=== PATIENT | female | born 1960 | race Caucasian/White ===

== ENCOUNTER 2017-04-12 19:28 | Emergency (ER) | payer OTHER ==
[2017-04-12 19:38] VITALS: RESP 18
--- NOTE | 2017-04-12 19:41 | EDPHY ---
H & P Smoking Status: Never smoked Time Seen by Provider: 04/12/17 19:35 HPI/ROS: CHIEF COMPLAINT: Fall with facial laceration HISTORY OF PRESENT ILLNESS: "I am drunk "is really all the patient can tell me ; she was visiting from [place] and out with friends drinking and apparently passed out with loss of consciousness. She is brought in by EMS but further history is unobtainable from the patient she does not remember the incident. She denies other injuries just primarily complains of pain left side of her face. REVIEW OF SYSTEMS: Eye: no change in vision or double vision ENT: no sore throat Cardiac: No chest pain Pulmonary: Not short of breath Abdomen: no vomiting, diarrhea, abdominal pain Musculoskeletal: No back pain or neck pain Skin: Facial laceration Neuro: Left-sided headache, no weakness or numbness in arms or legs Constitutional: no fever : no urinary symptoms A comprehensive 10 point review of systems is otherwise negative aside from elements mentioned in the history of present illness. PAST MEDICAL HISTORY: Negative Social history: Recent alcohol General Appearance: Alert and conversant, cooperative. Speech is slurred. Eyes: No scleral icterus. Extraocular motion is intact and pupils are reactive she is in a collar. ENT, Mouth: Normal mucous membranes. No tongue laceration or abrasion. Tender and swelling left cheek. Respiratory: Normal respiratory effort, breath sounds equal, lungs are clear to auscultation. Cardiovascular: Regular rate and rhythm. Gastrointestinal: Abdomen is soft and non tender. Neurological: Alert, answers questions, follows commands, normal motor and sensory in extremities. Speech is slurred. Skin: Left facial laceration at eyebrow. Musculoskeletal: No cervical thoracic or lumbar spine or extremity tenderness. No clavicular tenderness. Psychiatric: Not agitated. Emergency Department course/MDM: CT head and cervical spine, EKG, facial CT. CT head ordered for trauma and intoxication, amnestic to event. Cannot clear spine with ethanol, altered mentation from alcohol. Displaced left maxilla fracture, extending into the orbit without ocular muscle entrapment. See Varun LEE note for wound closure. Results of imaging discussed with Dr. Douglas at 8:30 p.m., and reviewed with the and patient on computer system. Cervical spine cleared clinically by me. Does not have evidence of ocular muscle entrapment. 2043: Blake Solano discussed from ENT, start on Augmentin, no other recommendations, followup Saturday for evaluation in the clinic. (Chandana Ryan) Constitutional: Initial Vital Signs Temperature (C) 36.6 C 04/12/17 19:35 Heart Rate 18 L 04/12/17 19:35 Respiratory Rate 18 04/12/17 19:35 Blood Pressure 128/84 H 04/12/17 19:35 O2 Sat (%) 94 04/12/17 19:35 O2 Delivery Mode Room Air Allergies/Adverse Reactions: No Known Allergies Allergy (Unverified 04/12/17 19:34) Home Medications: Medication Instructions Recorded Amoxicillin/Clavulanate Pot 875 mg PO BID #20 tab 04/12/17 [Augmentin 875 mg tab] Citalopram 04/12/17 oxyCODONE/APAP 5/325 [Percocet] 1 tab PO Q6 PRN #11 tab 04/12/17 Medical Decision Making - Diagnostics Imaging: Discussed imaging studies w/ loom setter fourdrinier Radiologist, I viewed and interpreted images myself - Diagnostics EKG Interpretation: 12-lead EKG interpreted by me; official reading is in trace master. My interpretation is sinus rhythm with a rate 60 otherwise normal. (Chandana Ryan) Procedures: I was asked by Dr. Chandana Ryan to repair facial laceration. Laceration repair. Verbal consent was obtained from the patient. The 3.5 cm laceration on the left eyebrow was anesthetized using 1% lidocaine without epinephrine. The wound was irrigated with saline, draped and explored to its base with a gloved finger. There were no deep structures involved. The wound was repaired with 6 0 Prolene, 8 sutures. The wound repair was complex. The procedure was performed by myself. (Jackie Bond) Differential Diagnosis: Differential diagnosis considered for headache including but not limited to subarachnoid hemorrhage, migraine headache, tension headache and infectious causes such as meningitis, pharyngitis and sinusitis. (Chandana Ryan) - Data Points Medications Given: Discontinued Medications Acetaminophen (Tylenol) 650 mg PO EDNOW ONE Stop: 04/12/17 21:18 Last Admin: 04/12/17 21:20 Dose: 650 mg Amoxicillin/Clavulanate Potassium (Augmentin 875mg) 875 mg PO EDNOW ONE PRN Reason: Protocol Stop: 04/12/17 20:51 Last Admin: 04/12/17 21:13 Dose: 875 mg Ondansetron HCl (Zofran) 4 mg IVP EDNOW ONE Stop: 04/12/17 21:18 Last Admin: 04/12/17 21:20 Dose: 4 mg Departure - Departure Disposition: Home, Routine, Self-Care Clinical Impression: Facial laceration Qualifiers: Encounter type: initial encounter Qualified Code(s): S01.81XA - Laceration without foreign body of other part of head, initial encounter Left maxillary fracture Qualifiers: Encounter type: initial encounter Fracture type: closed Qualified Code(s): S02.40DA - Maxillary fracture, left side, initial encounter for closed fracture Condition: Good Instructions: Laceration (ED), Facial Fracture (ED), Head Injury (ED) Additional Instructions: Wound Care Follow-Up: Removal of sutures in 5 days. Suture removal is complimentary in uncomplicated cases. Infection or abnormal findings would require reevaluation by the MD. In that case, you may be billed. Do not blow your nose. Please follow-up with ear nose and throat doctor on Saturday for evaluation of your facial fracture, the maxilla on the left side. Referrals: Fred Bean MD [Medical Doctor] - 04/15/17 Stand Alone Forms: Work Excuse Prescriptions: Amoxicillin/Clavulanate Pot [Augmentin 875 mg tab] 875 mg PO BID #20 tab oxyCODONE/APAP 5/325 [Percocet] 1 tab PO Q6 PRN #11 tab PRN Reason: Pain
--- NOTE | 2017-04-12 19:49 | CPEKG ---
Heart Rate: 60 RR Interval: 1000 P-R Interval: 188 QRSD Interval: 90 QT Interval: 440 QTC Interval: 440 P [place]: 56 QRS [place]: 63 T Wave [place]: 64 EKG Severity - NORMAL ECG - EKG Impression: SINUS RHYTHM Electronically Signed By: Chandana Ryan 12-Apr-2017 19:49:11
[2017-04-12] MEDS ORDERED: AMOXICILLIN/CLAVULANATE POT 875/125 MG TAB PO ONE (20:50)
[2017-04-12] MEDS ORDERED: ONDANSETRON 4 MG/2 ML VIAL IVP ONE (21:17)
[2017-04-12] MEDS ORDERED: ACETAMINOPHEN 325 MG TAB PO ONE (21:17)
[2017-04-12 22:15] VITALS: BP 108/64; PULSE 75; TEMP 98.1; O2SAT 97
== END 2017-04-12 22:15 | disposition home or self-care (01) ==
PROC: 0HQ1XZZ Repair Face Skin, External Approach (ICD-10-PCS; principal; 2017-04-12)
DX: S01.81XA Laceration without foreign body of other part of head, initial encounter (principal); S02.40DA Maxillary fracture, left side, initial encounter for closed fracture; W19.XXXA Unspecified fall, initial encounter; Y93.89 Activity, other specified
CPT/HCPCS: 96374; J2405